=== PATIENT | male | born 1965 | race Caucasian/White ===

== ENCOUNTER 2022-02-08 08:00 | Outpatient (RCR) | payer BC | END 2022-03-08 | disposition home or self-care (01) | LOC: PT | DX: M17.12 Unilateral primary osteoarthritis, left knee (principal) ==

== ENCOUNTER 2022-04-06 08:00 | Outpatient (RCR) | payer BC | END 2022-04-15 15:00 | disposition home or self-care (01) | LOC: PT 08:00 | DX: M17.12 Unilateral primary osteoarthritis, left knee (principal) ==